=== PATIENT | female | born 1990 | race Two or more races ===

== ENCOUNTER 2017-04-10 16:39 | Outpatient (CLI) | payer OTHER ==
--- NOTE | 2017-04-11 12:04 | Diagnostic Imaging Report ---
Indication: Facial pain. Sinusitis Comparison: None Findings: AP, lateral and Montoya' view obtained. There are paranasal sinuses appear clear. There is no air-fluid level or evidence of significant opacification of the paranasal sinuses on this study. Impression: Negative exam
== END 2017-04-10 18:39 | disposition home or self-care (01) ==
LOC: RAD 16:39
DX: R51 Headache (principal)
CPT/HCPCS: 70220